=== PATIENT | female | born 1980 | race Hispanic/Latino ===

== ENCOUNTER 2017-06-15 09:39 | Emergency (ER) | payer BC, OTHER ==
[2017-06-15 09:45] VITALS: BP 120/72; PULSE 71; RESP 20; TEMP 98.4; O2SAT 98
[2017-06-15 09:50] VITALS: BMI 22.3
--- NOTE | 2017-06-15 10:45 | ED PDOC ---
HPI: Trauma/Fall - HPI Time Seen by Provider: 06/15/17 09:46 Chief Complaint (Nursing): Trauma Chief Complaint (Provider): Trauma History Per: Patient History/Exam Limitations: no limitations Onset/Duration Of Symptoms: Hrs (x 1) Injury Occurred (Timing): Hours Ago: (1) Additional Complaint(s): Casandra is a 37 y/o female with a history of concussions who presented to the ED after a child hit her in the head with a football 1 hour prior to arrival. Patient reports initially feeling dizzy but reports her symptoms resolved spontaneously upon ED arrival. She denies loss of consciousness, headache, nausea, or vomiting. PMD: None Provided Past Medical History Reviewed: Historical Data, Nursing Documentation, Vital Signs Vital Signs: Last Vital Signs Temp 98.4 F 06/15/17 09:44 Pulse 71 06/15/17 09:44 Resp 20 06/15/17 09:44 BP 120/72 06/15/17 09:44 Pulse Ox 98 06/15/17 09:44 - Medical History PMH: Denies: Benign Prostatic Hyperplasia, Chronic Kidney Disease Other PMH: Concussions - Surgical History Surgical History: No Surg Hx - Family History Family History: States: Unknown Family Hx - Allergies Allergies/Adverse Reactions: Allergies Allergy/AdvReac Type Severity Reaction Status Date / Time No Known Allergies Allergy Verified 06/15/17 10:44 Review of Systems ROS Statement: Except As Marked, All Systems Reviewed And Found Negative (all symptoms resolved) Gastrointestinal: Negative for: Nausea, Vomiting Neurological: Negative for: Headache, Dizziness, Other (loss of consciousness) Physical Exam - Reviewed Nursing Documentation Reviewed: Yes Vital Signs Reviewed: Yes - Physical Exam Appears: Positive for: Well, Non-toxic, No Acute Distress Head Exam: Positive for: ATRAUMATIC, NORMAL INSPECTION, NORMOCEPHALIC Skin: Positive for: Normal Color, Warm, Dry Eye Exam: Positive for: Normal appearance, EOMI, PERRL. Negative for: Nystagmus ENT: Positive for: Normal ENT Inspection Neck: Positive for: Normal, Painless ROM Cardiovascular/Chest: Positive for: Regular Rate, Rhythm Respiratory: Positive for: CNT, Normal Breath Sounds Gastrointestinal/Abdominal: Positive for: Normal Exam, Bowel Sounds, Soft. Negative for: Tenderness Back: Positive for: Normal Inspection Extremity: Positive for: Normal ROM Neurologic/Psych: Positive for: Alert, Oriented - ECG O2 Sat by Pulse Oximetry: 98 (RA) Pulse Ox Interpretation: Normal Medical Decision Making Medical Decision Making: Initial Impression: Head Injury Initial Plan --Guidelines were revised and show no indication for a need for CT at present time Scribe Attestation: Documented by Waylon Ahn, acting as a scribe for Dr. Stephany Curtis. Provider Scribe Attestation: All medical record entries made by the Scribe were at my direction and personally dictated by me. I have reviewed the chart and agree that the record accurately reflects my personal performance of the history, physical exam, medical decision making, and the department course for this patient. I have also personally directed, reviewed, and agree with the discharge instructions and disposition. Disposition - Clinical Impression Clinical Impression: Head injury - Patient ED Disposition Is Patient to be Admitted: No Doctor Will See Patient In The: Office Counseled Patient/Family Regarding: Studies Performed, Diagnosis, Need For Followup - Disposition Referrals: [facility] [Outside] Disposition: Routine/Home Disposition Time: 11:20 Condition: GOOD Additional Instructions: Follow up with your PCP in 2-3 days. Take tylenol or advil for headaches. Return for worsening. Instructions: Head Injury (ED) Forms: [facility] ED School/Work Excuse
[2017-06-15] MEDS ORDERED: Lidocaine 1% Inj (20ml) ONE (12:36)
[2017-06-15] MEDS ORDERED: Bupivacaine 0.5% Inj(30mL) ONE (12:37)
== END 2017-06-15 11:20 | disposition home or self-care (01) ==
LOC: H.ER 09:39
DX: S09.90XA Unspecified injury of head, initial encounter (principal); W22.8XXA Striking against or struck by other objects, initial encounter; Y99.0 Civilian activity done for income or pay